=== PATIENT | female | born 1950 | race Caucasian/White ===

== ENCOUNTER → 2019-05-29 13:27 | Outpatient (CLI) | payer MEDICARE, SELFPAY ==
--- NOTE | ~2019-05-29 | MM_ITS ---
EXAMINATION: MM screening [place] BI w angélica HISTORY: Screening mammogram TECHNIQUE: Craniocaudal and mediolateral oblique 3-D tomosynthesis images were obtained and synthetic 2-D images were generated. CAD analysis was submitted and interpreted. COMPARISON: 05/23/2018, 04/13/2017, 03/15/2016 bilateral digital screening mammogram examinations BREAST PARENCHYMAL COMPOSITION: The breasts are heterogeneously dense, which may obscure small masses . FINDINGS: There is no evidence of suspicious mass, calcification, or architectural distortion to sugg est malignancy in either breast. There has been no suspicious interval change. IMPRESSION: 1. No mammographic evidence of malignancy. 2. Recommend routine screening mammography in one year. BI-RADS Category 1: Negative Reviewed, dictated and finalized at location A. [employer]IVE INVESTIGATOR
== END ==
PROVIDERS: Visit Provider Nurse Practitioner Obstetrics & Gynecology
DX: Z12.31 Encounter for screening mammogram for malignant neoplasm of breast (principal)
CPT/HCPCS: 77063; 77067

== ENCOUNTER → 2020-07-01 16:10 | Outpatient (CLI) | payer MEDICARE, SELFPAY ==
--- NOTE | ~2020-07-01 | XR_ITS ---
EXAMINATION: XR chest 2V DATE: 07/01/2020 16:59 INDICATION: Cough and shortness of breath TECHNIQUE: PA and lateral views of the chest are obtained. COMPARISON: 04/17/2019 FINDINGS: The lungs are free of acute opacities. There is no pleural effusion or pneumothorax. The ca rdiomediastinal silhouette is normal. There is mild thoracic spondylosis. IMPRESSION: 1. No acute cardiopulmonary abnormality. Reviewed, dictated and finalized at location A.
== END ==
DX: R05 Cough (principal)
CPT/HCPCS: 71046

== ENCOUNTER → 2020-10-20 15:02 | Outpatient (CLI) | payer MEDICARE, SELFPAY ==
--- NOTE | ~2020-10-20 | MM_ITS ---
EXAMINATION: MM screening [place] BI w angélica HISTORY: Screening mammogram TECHNIQUE: Craniocaudal and mediolateral oblique 3-D tomosynthesis images were obtained and synthetic 2-D images were generated. CAD analysis was submitted and interpreted. COMPARISON: 05/29/2019, 05/23/2018, 04/13/2017 bilateral digital screening mammogram examinations BREAST PARENCHYMAL COMPOSITION: The breasts are heterogeneously dense, which may obscure small masses . FINDINGS: There is no evidence of suspicious mass, calcification, or architectural distortion to sugg est malignancy in either breast. There has been no suspicious interval change. IMPRESSION: 1. No mammographic evidence of malignancy. 2. Recommend routine screening mammography in one year. BI-RADS Category 1: Negative Reviewed, dictated and finalized at location A.
== END ==
PROVIDERS: Visit Provider Nurse Practitioner Obstetrics & Gynecology
DX: Z12.31 Encounter for screening mammogram for malignant neoplasm of breast (principal)
CPT/HCPCS: 77063; 77067

== ENCOUNTER → 2020-12-01 17:37 | Outpatient (CLI) | payer MEDICARE, SELFPAY ==
--- NOTE | ~2020-12-01 | DEXA_ITS ---
Bone Density Report Name: Gela Ortiz Age: 70 Sex: Female Ethnicity: White Date of : 1950 Indication: osteopenia; height loss; postmenopausal Referring Provider: Kelley Zhou Study: Bone densitometry was performed. Exam Date: December 01, 2020 Accession number: [id number] Bone Density: Region BMD T-score Z-score Classification AP Spine (L3, L4) 1.195 0.9 3.1 Normal Femoral Neck (Left) 0.740 -1.0 0.8 Normal Total Hip (Left) 0.818 -1.0 0.5 Normal Femoral Neck (Right) 0.768 -0.7 1.1 Normal Total Hip (Right) 0.772 -1.4 0.1 Osteopenia Total Hip Mean 0.795 -1.2 0.3 Osteopenia World Health Organization criteria for BMD impression classify patients as: Normal (T-score at or above -1.0), Osteopenia (T-score between -1.0 and -2.5), or Osteoporosis (T-score at or below -2.5). 10-year Fracture Risk(1): Major Osteoporotic Fracture 8.7% Hip Fracture 0.9% Reported Risk Factors: [place] (), Neck BMD=0.740, BMI=28.8 (1) FRAX(R) Version 3.08. Fracture probability calculated for an untreated patient. Fracture probability may be lower if the patient has received treatment. Previous Exams: Region Exam Age BMD T-score BMD Change BMD Change Date g/cm2 vs Baseline vs Previous AP Spine(L3, L4) 12/01/2020 70 1.195 0.9 0.010 0.084* 07/18/2018 67 1.111 0.1 -0.074 0.033* 02/13/2014 63 1.078 -0.2 -0.107 -0.012 12/21/2011 61 1.090 -0.1 -0.095 -0.051* 11/12/2009 59 1.141 0.4 -0.044 0.035* 11/19/2008 58 1.106 0.0 -0.079 -0.012 08/29/2007 57 1.118 0.2 -0.067 0.007 08/12/2006 56 1.111 0.1 -0.074 -0.074 06/23/2003 52 1.185 0.8 Total Hip(Left) 12/01/2020 70 0.818 -1.0 -0.072 0.052* 07/18/2018 67 0.767 -1.4 -0.124 -0.018 02/13/2014 63 0.784 -1.3 -0.106 0.020 12/21/2011 61 0.765 -1.5 -0.126 -0.048* 11/12/2009 59 0.813 -1.1 -0.078 0.014 11/19/2008 58 0.799 -1.2 -0.092 -0.011 08/29/2007 57 0.810 -1.1 -0.080 0.001 08/12/2006 56 0.809 -1.1 -0.082 -0.082 06/23/2003 52 0.890 -0.4 Total Hip(Right) 12/01/2020 70 0.772 -1.4 -0.071 0.021 07/18/2018 67 0.752 -1.6 -0.092 -0.043* 02/13/2014 63 0.795 -1.2 -0.048 0.030* 12/21/2011 61 0.765 -1.5 -0.079 -0.023 11/12/2009 59 0.787 -1.3 -0.056
== END ==
PROVIDERS: Visit Provider Obstetrics & Gynecology
DX: M85.851 Other specified disorders of bone density and structure, right thigh (principal)
CPT/HCPCS: 77080

== ENCOUNTER → 2022-05-18 09:50 | Outpatient (CLI) | payer MEDICARE, SELFPAY ==
--- NOTE | ~2022-05-18 | MM_ITS ---
EXAMINATION: MM screening [place] BI w angélica HISTORY: Screening mammogram TECHNIQUE: Craniocaudal and mediolateral oblique 3-D tomosynthesis images were obtained and synthetic 2-D images were generated. CAD analysis was submitted and interpreted. COMPARISON: 10/20/2020, 05/29/2019, 05/23/2018 bilateral screening mammogram examinations BREAST PARENCHYMAL COMPOSITION: The breasts are heterogeneously dense, which may obscure small masses . FINDINGS: There is no evidence of suspicious mass, calcification, or architectural distortion to sugg est malignancy in either breast. There has been no suspicious interval change. IMPRESSION: 1. No mammographic evidence of malignancy. 2. Recommend routine screening mammography in one year. BI-RADS Category 1: Negative Reviewed, dictated and finalized at location A. LASSER
== END ==
DX: Z12.31 Encounter for screening mammogram for malignant neoplasm of breast (principal)
CPT/HCPCS: 77063; 77067